=== PATIENT | female | born 1930 | race Caucasian/White ===

== ENCOUNTER 2017-03-02 11:59 | Emergency (ER) | payer OTHER ==
[~2017-03-02] VITALS: Ht 167.6 cm; Wt 54.4 kg
[~2017-03-02 11:59] MED LIST: LISI-711 PO; METO-169 PO; POTA10TA34 PO
[2017-03-02 12:48] LABS: Basophils # (auto) 0 uL; Basophils % (auto) 0.4 % (0.0-2.0); Eosinophils # (auto) 0.1 uL; Hematocrit 37.5 % (36.0-46.0); Hemoglobin 12.6 g/dL (12.2-16.2); Lymphocytes # (auto) 1.3 uL; Lymphocytes % (auto) 15.7 % (10.0-50.0); Mean Corpuscular Hemoglobin 28.4 pg (28.0-32.0); Mean Corpuscular Hgb Conc. 33.6 g/dL (32.0-36.0); Mean Corpuscular Volume 84.5 fL (80.0-100.0); Mean Platelet Volume 8.1 fL (7.4-10.4); Monocytes # (auto) 0.8 uL; Monocytes % (auto) 9.2 % (0.0-12.0); Neutrophils # (auto) 6.3 uL; Neutrophils % (auto) 73.7 % (37.0-80.0); Platelet Count (auto) 228 10^3/uL (140-450); White Blood Cell 8.6 10^3/uL (4.4-10.8)
[2017-03-02 13:15] LABS: Albumin 3.5 g/dL (3.4-5.0); Alkaline Phosphatase 70 U/L (45-117); Anion Gap 9 (5-15); Aspartate Aminotransferase 15 U/L (15-37); BUN/Creatinine Ratio 25.7; Bilirubin, Total 0.8 mg/dL (0.2-1.0); Blood Urea Nitrogen 19 mg/dL (7-18); Calcium 8.9 mg/dL (8.5-10.1); Carbon Dioxide 24 mmol/L (21-32); Chloride 107 mmol/L (98-107); GFR African American 96 mL/min; GFR Non-African American 79 mL/min; Glucose 129 mg/dL (74-106); Potassium 3.6 mmol/L (3.5-5.1); Sodium 140 mmol/L (136-145); Total Protein 7.1 g/dL (6.4-8.2)
[2017-03-02] MEDS ORDERED: SODIUM CHLORIDE 0.9% 1,000 ML IV ONE (14:15)
[2017-03-02 14:35] LABS: INR 1.05 (0.9-1.15); Prothrombin Time 11.5 sec (9.37-12.3)
[2017-03-02 14:41] VITALS: BP 142/80
== END 2017-03-02 15:00 | disposition short-term general hospital (02) ==
LOC: ER 12:03
DX: I61.9 Nontraumatic intracerebral hemorrhage, unspecified (principal); R47.81 Slurred speech; I10 Essential (primary) hypertension; F03.90 Unspecified dementia, unspecified severity, without behavioral disturbance, psychotic disturbance, mood disturbance, and anxiety
CPT/HCPCS: 36415; 51702; 70450; 80053; 82962; 84484; 85025; 85610; 85730; 93005; 96360; 99291

== ENCOUNTER 2017-04-02 19:05 | Inpatient (IN) | payer OTHER ==
[~2017-04-02] VITALS: Ht 167.6 cm; Wt 56.0 kg
[2017-04-02 20:00] VITALS: BP 121/52
[2017-04-02] MEDS ORDERED: MULT1TAB61 PEG (20:20)
[2017-04-02] MEDS ORDERED: FAMO20IN2 IV (20:20)
[2017-04-02] MEDS ORDERED: [UNRECOGNIZED DRUG - CODE] SUBCUT (20:20)
[2017-04-02] MEDS ORDERED: ZIN220C PEG (20:20)
[2017-04-02] MEDS ORDERED: ASPI81CH43 PEG (20:20)
[2017-04-02] MEDS ORDERED: CHOL100079 PEG (20:20)
[2017-04-02] MEDS ORDERED: COLLPOW10 TOP (20:20)
[2017-04-02] MEDS ORDERED: ASCO-22 PEG (20:20)
[2017-04-02] MEDS ORDERED: LEVE100S9 PEG (20:20)
[2017-04-02] MEDS ORDERED: METO-159 PO (20:20)
[2017-04-02] MEDS ORDERED: NITROGLYCERIN 0.4 MG SL TAB SL PRN (21:30)
[2017-04-02] MEDS ORDERED: MORPHINE SULF INJ 2 MG/ML SYRINGE 1ML IV PRN (21:30)
[2017-04-02] MEDS ORDERED: METOPROLOL TARTRATE 50 MG TAB PO ONE (23:45)
[2017-04-03] VITALS (7 sets, daily range): BP systolic 102–146; BP diastolic 47–78
[2017-04-03] MEDS ORDERED: DEXTROSE (50%) 50ML SYRG IV PRN
[2017-04-03 01:16] LABS: Albumin 2.1 g/dL (3.4-5.0); Anion Gap 8 (5-15); Aspartate Aminotransferase 20 U/L (15-37); BUN/Creatinine Ratio 47.6; Blood Urea Nitrogen 20 mg/dL (7-18); Calcium 8.6 mg/dL (8.5-10.1); Carbon Dioxide 27 mmol/L (21-32); Chloride 99 mmol/L (98-107); GFR African American 184 mL/min; GFR Non-African American 152 mL/min; Glucose 115 mg/dL (74-106); Potassium 4.6 mmol/L (3.5-5.1); Sodium 134 mmol/L (136-145)
[2017-04-03 01:22] LABS: Alkaline Phosphatase 119 U/L (45-117); Bilirubin, Total 0.6 mg/dL (0.2-1.0); Total Protein 6.8 g/dL (6.4-8.2)
[2017-04-03 01:23] LABS: Basophils # (auto) 0 uL; Basophils % (auto) 0.2 % (0.0-2.0); CONDITION Y; Eosinophils # (auto) 0.2 uL; Eosinophils % (auto) 1.2 % (0.0-7.0); Hematocrit 32.2 % (36.0-46.0); Hemoglobin 10.8 g/dL (12.2-16.2); Mean Corpuscular Hemoglobin 28.3 pg (28.0-32.0); Mean Corpuscular Hgb Conc. 33.5 g/dL (32.0-36.0); Mean Corpuscular Volume 84.5 fL (80.0-100.0); Mean Platelet Volume 9.1 fL (7.4-10.4); Monocytes # (auto) 1.5 uL; Monocytes % (auto) 11.4 % (0.0-12.0); Neutrophils # (auto) 10.4 uL; Neutrophils % (auto) 79.2 % (37.0-80.0); Platelet Count (auto) 392 10^3/uL (140-450); Red Cell Distribution Width 14.8 % (11.6-16.0); White Blood Cell 13.1 10^3/uL (4.4-10.8)
[2017-04-03 04:00] LABS: Urine Bilirubin Negative (Negative); Urine Blood Negative /uL (Negative); Urine Color Yellow (Yellow); Urine Glucose Normal (Normal); Urine Ketone Negative (Negative); Urine Nitrite Negative (Negative); Urine RBC 1 /hpf (0 - 4); Urine pH 6.5 (5.0-8.0)
[2017-04-03] MEDS: InsuLIN REG 1unit/0.01ml Soln (100units/ml) SC SCH ×4 (06:00→18:00)
[2017-04-03] MEDS: ACCU-CHEK COMFORT CURVE STRIP VI SCH ×4 (06:24→18:00)
[2017-04-03] MEDS ORDERED: Diabetisource AC 1 Liter GT SCH (13:00)
[2017-04-03] MEDS ORDERED: HYDROcodone-ACET 5/325MG TAB PO PRN (13:00)
[2017-04-03] MEDS: METOPROLOL TARTRATE 50 MG TAB PO SCH ×2 (13:11→22:00)
[2017-04-03] MEDS: LISINOPRIL 10 MG TAB PO SCH (13:12)
[2017-04-03] MEDS: LEVETIRACETAM 500 MG TAB PO SCH ×2 (13:13→22:15)
[2017-04-03] MEDS: ASPirin 81 mg TAB PO SCH (13:36)
[2017-04-03] MEDS ORDERED: ACETAMINOPHEN 500 MG TAB PO PRN (14:30)
[2017-04-04] MEDS: ACCU-CHEK COMFORT CURVE STRIP VI SCH ×4 (00:40→18:00)
[2017-04-04 05:00] VITALS: BP 99/53
[2017-04-04] MEDS: InsuLIN REG 1unit/0.01ml Soln (100units/ml) SC SCH ×4 (05:07→18:00)
[2017-04-04 07:14] LABS: Basophils # (auto) 0.1 uL; Basophils % (auto) 0.6 % (0.0-2.0); CONDITION Y; Eosinophils # (auto) 0.2 uL; Eosinophils % (auto) 2.7 % (0.0-7.0); Hematocrit 29.8 % (36.0-46.0); Lymphocytes # (auto) 0.9 uL; Lymphocytes % (auto) 10.3 % (10.0-50.0); Mean Corpuscular Hemoglobin 28.2 pg (28.0-32.0); Mean Corpuscular Hgb Conc. 33.7 g/dL (32.0-36.0); Mean Corpuscular Volume 83.8 fL (80.0-100.0); Mean Platelet Volume 8.7 fL (7.4-10.4); Monocytes # (auto) 1.2 uL; Monocytes % (auto) 13.5 % (0.0-12.0); Neutrophils # (auto) 6.3 uL; Neutrophils % (auto) 72.9 % (37.0-80.0); Platelet Count (auto) 358 10^3/uL (140-450); Red Cell Distribution Width 14.8 % (11.6-16.0); White Blood Cell 8.7 10^3/uL (4.4-10.8)
[2017-04-04 07:30] LABS: BUN/Creatinine Ratio 73.5; Potassium 3.7 mmol/L (3.5-5.1)
[2017-04-04 09:09] VITALS: BP 107/60
[2017-04-04] MEDS: METOPROLOL TARTRATE 50 MG TAB PO SCH ×2 (10:00→22:00)
[2017-04-04] MEDS: LISINOPRIL 10 MG TAB PO SCH (10:00)
[2017-04-04] MEDS ORDERED: ACETAMINOPHEN 650 mg PER 20 mL UD PO PRN (11:45)
[2017-04-04] MEDS: ASPirin 81 mg TAB PO SCH (12:32)
[2017-04-04] MEDS: LEVETIRACETAM 500 MG/5ML ORAL SOLN UD PO SCH ×2 (12:33→23:00)
[2017-04-04 12:40] VITALS: BP 85/38
[2017-04-04] MEDS ORDERED: MORPHINE SULFATE 4 MG/ML SYRG IV PRN (14:17)
[2017-04-04 17:00] VITALS: BP 92/45
[2017-04-04 20:00] VITALS: BP 99/51
[2017-04-04 21:30] VITALS: BP 99/51
[2017-04-05 05:00] VITALS: BP 95/43
[2017-04-05] MEDS: ACCU-CHEK COMFORT CURVE STRIP VI SCH (05:34)
[2017-04-05] MEDS: InsuLIN REG 1unit/0.01ml Soln (100units/ml) SC SCH ×2 (05:35)
[2017-04-05 08:41] VITALS: BP 105/60
[2017-04-05] MEDS: LISINOPRIL 10 MG TAB PO SCH (10:00)
[2017-04-05] MEDS: ASPirin 81 mg TAB PO SCH (10:19)
[2017-04-05] MEDS: LEVETIRACETAM 500 MG/5ML ORAL SOLN UD PO SCH ×2 (10:19→23:11)
[2017-04-05] MEDS: METOPROLOL TARTRATE 50 MG TAB PO SCH ×2 (10:19→23:12)
[2017-04-05] MEDS ORDERED: TROLAMINE SALICYLATE 10% TOP CREAM TOP PRN (11:15)
[2017-04-05 12:19] VITALS: BP 84/53
[2017-04-05 16:35] VITALS: BP 85/48
[2017-04-05 20:36] VITALS: BP 106/53
[2017-04-05] MEDS: ASCORBIC ACID 500 MG TAB PO SCH (23:11)
[2017-04-06 05:41] VITALS: BP 128/73
[2017-04-06 07:29] VITALS: BP 120/61
[2017-04-06 08:00] VITALS: BP 120/61
[2017-04-06] MEDS: PRO-STAT 64 30ML PO SCH ×2 (08:00→18:22)
[2017-04-06] MEDS: ASPirin 81 mg TAB PO SCH (11:34)
[2017-04-06] MEDS: METOPROLOL TARTRATE 50 MG TAB PO SCH ×2 (11:34→22:14)
[2017-04-06] MEDS: LEVETIRACETAM 500 MG/5ML ORAL SOLN UD PO SCH ×2 (11:34→22:13)
[2017-04-06] MEDS: ASCORBIC ACID 500 MG TAB PO SCH ×2 (11:35→22:14)
[2017-04-06] MEDS: MULTIPLE VITAMINS W/ MINERALS TAB PO SCH (11:35)
[2017-04-06 12:24] VITALS: BP 105/55
[2017-04-06 16:36] VITALS: BP 122/64
[2017-04-06] MEDS: Diabetisource AC 1 Liter GT SCH (17:00)
[2017-04-07 05:00] VITALS: BP 114/69
[2017-04-07 08:00] VITALS: BP 112/73
[2017-04-07] MEDS: METOPROLOL TARTRATE 50 MG TAB PO SCH ×2 (10:00→22:45)
[2017-04-07 10:13] VITALS: BP 112/73
[2017-04-07] MEDS: ASCORBIC ACID 500 MG TAB PO SCH ×2 (12:17→22:45)
[2017-04-07] MEDS: MULTIPLE VITAMINS W/ MINERALS TAB PO SCH (12:18)
[2017-04-07] MEDS: LEVETIRACETAM 500 MG/5ML ORAL SOLN UD PO SCH ×2 (12:18→22:44)
[2017-04-07] MEDS: ASPirin 81 mg TAB PO SCH (12:18)
[2017-04-07] MEDS: PRO-STAT 64 30ML PO SCH ×2 (12:18→18:00)
[2017-04-07 15:17] VITALS: BP 126/64
[2017-04-07 17:08] VITALS: BP 113/73
[2017-04-07 22:00] VITALS: BP 116/51
[2017-04-08 05:00] VITALS: BP 94/57
[2017-04-08 08:00] VITALS: BP 101/64
[2017-04-08] MEDS: PRO-STAT 64 30ML PO SCH ×2 (08:00→18:00)
[2017-04-08] MEDS: METOPROLOL TARTRATE 50 MG TAB PO SCH ×2 (08:04→22:00)
[2017-04-08] MEDS: ACETAMINOPHEN 650 mg PER 20 mL UD GT PRN (08:39)
[2017-04-08 09:16] VITALS: BP 101/64
[2017-04-08] MEDS: ASPirin 81 mg TAB PO SCH (12:05)
[2017-04-08] MEDS: FREE WATER GT SCH ×3 (12:06→23:53)
[2017-04-08] MEDS: ASCORBIC ACID 500 MG TAB PO SCH ×2 (12:06→22:20)
[2017-04-08] MEDS: LEVETIRACETAM 500 MG/5ML ORAL SOLN UD PO SCH ×2 (12:06→22:19)
[2017-04-08] MEDS: MULTIPLE VITAMINS W/ MINERALS TAB PO SCH (12:06)
[2017-04-08 14:00] VITALS: BP 113/56
[2017-04-08] MEDS: Diabetisource AC 1 Liter GT SCH (15:25)
[2017-04-08 16:00] VITALS: BP 105/61
[2017-04-08 22:00] VITALS: BP_SYST 101; BP_SYST 112; BP_DIAS 57; BP_DIAS 77
[2017-04-09] MEDS: FREE WATER GT SCH ×3 (05:59→18:12)
[2017-04-09 06:00] VITALS: BP 100/59
[2017-04-09 08:00] VITALS: BP 105/55
[2017-04-09] MEDS: PRO-STAT 64 30ML PO SCH ×2 (10:38→18:12)
[2017-04-09] MEDS: LEVETIRACETAM 500 MG/5ML ORAL SOLN UD PO SCH ×2 (10:39→23:06)
[2017-04-09] MEDS: METOPROLOL TARTRATE 50 MG TAB PO SCH ×2 (10:39→23:07)
[2017-04-09] MEDS: ASPirin 81 mg TAB PO SCH (10:40)
[2017-04-09] MEDS: ASCORBIC ACID 500 MG TAB PO SCH ×2 (10:40→23:07)
[2017-04-09] MEDS: MULTIPLE VITAMINS W/ MINERALS TAB PO SCH (10:40)
[2017-04-09 13:00] VITALS: BP 109/51
[2017-04-09 17:30] VITALS: BP 102/48
[2017-04-09 22:00] VITALS: BP 103/61
[2017-04-09] MEDS: ATORVASTATIN 20 MG TAB PEG SCH (23:05)
[2017-04-10 06:00] VITALS: BP 111/60
[2017-04-10] MEDS: FREE WATER GT SCH ×5 (06:00→23:47)
[2017-04-10 09:00] VITALS: BP 104/65
[2017-04-10] MEDS: PRO-STAT 64 30ML PO SCH ×2 (11:45→18:00)
[2017-04-10] MEDS: ASPirin 81 mg TAB PO SCH (11:46)
[2017-04-10] MEDS: LEVETIRACETAM 500 MG/5ML ORAL SOLN UD PO SCH ×2 (11:47→23:10)
[2017-04-10] MEDS: METOPROLOL TARTRATE 50 MG TAB PO SCH ×2 (11:50→21:58)
[2017-04-10] MEDS: MULTIPLE VITAMINS W/ MINERALS TAB PO SCH (11:50)
[2017-04-10] MEDS: ASCORBIC ACID 500 MG TAB PO SCH ×2 (11:51→21:58)
[2017-04-10 13:00] VITALS: BP 105/63
[2017-04-10] MEDS ORDERED: HYDROcodone-ACET 5/325MG TAB PO PRN (15:15)
[2017-04-10] MEDS ORDERED: ARTIFICIAL TEARS 15ml EACHEYE PRN (15:15)
[2017-04-10 17:00] VITALS: BP 96/52
[2017-04-10 20:00] VITALS: BP 112/61
[2017-04-10] MEDS: ATORVASTATIN 20 MG TAB PEG SCH (21:57)
[2017-04-10 22:00] VITALS: BP 112/61
[2017-04-11 05:00] VITALS: BP 96/50
[2017-04-11] MEDS: FREE WATER GT SCH ×3 (06:12→18:00)
[2017-04-11 09:00] VITALS: BP 99/50
[2017-04-11] MEDS: LEVETIRACETAM 500 MG/5ML ORAL SOLN UD PO SCH ×2 (09:38→22:17)
[2017-04-11] MEDS: ASPirin 81 mg TAB PO SCH (09:39)
[2017-04-11] MEDS: METOPROLOL TARTRATE 50 MG TAB PO SCH ×2 (09:39→22:18)
[2017-04-11] MEDS: PRO-STAT 64 30ML PO SCH ×2 (09:40→18:00)
[2017-04-11] MEDS: ASCORBIC ACID 500 MG TAB PO SCH ×2 (09:40→22:17)
[2017-04-11] MEDS: MULTIPLE VITAMINS W/ MINERALS TAB PO SCH (09:40)
[2017-04-11 13:00] VITALS: BP 92/55
[2017-04-11 16:42] VITALS: BP 88/35
[2017-04-11 20:00] VITALS: BP 106/53
[2017-04-11 22:00] VITALS: BP 106/53
[2017-04-11] MEDS: ATORVASTATIN 20 MG TAB PEG SCH (22:17)
[2017-04-12] MEDS: FREE WATER GT SCH ×4 (01:17→18:19)
[2017-04-12 05:00] VITALS: BP 118/65
[2017-04-12] MEDS: PRO-STAT 64 30ML PO SCH ×3 (08:00→18:19)
[2017-04-12 09:00] VITALS: BP 129/78
[2017-04-12] MEDS: METOPROLOL TARTRATE 50 MG TAB PO SCH ×2 (14:32→21:50)
[2017-04-12] MEDS: ASPirin 81 mg TAB PO SCH (14:32)
[2017-04-12] MEDS: LEVETIRACETAM 500 MG/5ML ORAL SOLN UD PO SCH ×2 (14:32→21:51)
[2017-04-12] MEDS: ASCORBIC ACID 500 MG TAB PO SCH ×2 (14:33→21:36)
[2017-04-12] MEDS: MULTIPLE VITAMINS W/ MINERALS TAB PO SCH (14:33)
[2017-04-12 15:05] VITALS: BP 122/76
[2017-04-12 17:20] VITALS: BP 120/68
[2017-04-12] MEDS: ATORVASTATIN 20 MG TAB PEG SCH (21:36)
[2017-04-12 22:00] VITALS: BP 105/59
[2017-04-13] MEDS: FREE WATER GT SCH ×4 (00:34→18:00)
[2017-04-13 05:00] VITALS: BP 104/53
[2017-04-13] MEDS: PRO-STAT 64 30ML PO SCH ×2 (08:00→18:00)
[2017-04-13 09:05] VITALS: BP 101/63
[2017-04-13] MEDS: METOPROLOL TARTRATE 50 MG TAB PO SCH ×2 (10:00→21:41)
[2017-04-13] MEDS: ASPirin 81 mg TAB PO SCH (10:00)
[2017-04-13] MEDS: MULTIPLE VITAMINS W/ MINERALS TAB PO SCH (10:30)
[2017-04-13] MEDS: ASCORBIC ACID 500 MG TAB PO SCH ×2 (10:30→21:41)
[2017-04-13] MEDS: LEVETIRACETAM 500 MG/5ML ORAL SOLN UD PO SCH ×2 (10:31→21:40)
[2017-04-13 16:53] VITALS: BP 102/56
[2017-04-13] MEDS: ATORVASTATIN 20 MG TAB PEG SCH (21:40)
[2017-04-13 21:43] VITALS: BP 133/92
[2017-04-14] MEDS: FREE WATER GT SCH ×5 (00:04→23:43)
[2017-04-14 04:41] VITALS: BP 102/42
[2017-04-14] MEDS: PRO-STAT 64 30ML PO SCH ×2 (08:00→17:51)
[2017-04-14 09:00] VITALS: BP 94/45
[2017-04-14] MEDS: METOPROLOL TARTRATE 50 MG TAB PO SCH ×2 (10:00→22:00)
[2017-04-14] MEDS: ASPirin 81 mg TAB PO SCH (10:48)
[2017-04-14] MEDS: ASCORBIC ACID 500 MG TAB PO SCH ×2 (10:49→23:00)
[2017-04-14] MEDS: MULTIPLE VITAMINS W/ MINERALS TAB PO SCH (10:49)
[2017-04-14] MEDS: LEVETIRACETAM 500 MG/5ML ORAL SOLN UD PO SCH ×2 (10:51→23:00)
[2017-04-14 13:00] VITALS: BP_SYST 104; BP_SYST 105; BP_DIAS 47; BP_DIAS 62
[2017-04-14 17:00] VITALS: BP 104/47
[2017-04-14 20:00] VITALS: BP 113/52
[2017-04-14 22:07] VITALS: BP 113/52
[2017-04-14] MEDS: ATORVASTATIN 20 MG TAB PEG SCH (23:00)
[2017-04-15] VITALS (7 sets, daily range): BP systolic 83–132; BP diastolic 42–81
[2017-04-15] MEDS: FREE WATER GT SCH ×4 (05:45→23:56)
[2017-04-15 06:20] LABS: Basophils # (auto) 0 uL; Basophils % (auto) 0.1 % (0.0-2.0); CONDITION Y; Eosinophils # (auto) 0.1 uL; Eosinophils % (auto) 0.5 % (0.0-7.0); Hematocrit 28.9 % (36.0-46.0); Hemoglobin 9.5 g/dL (12.2-16.2); Lymphocytes # (auto) 1.3 uL; Lymphocytes % (auto) 8.8 % (10.0-50.0); Mean Corpuscular Hgb Conc. 32.8 g/dL (32.0-36.0); Mean Corpuscular Volume 85.2 fL (80.0-100.0); Mean Platelet Volume 8.7 fL (7.4-10.4); Monocytes # (auto) 1.2 uL; Monocytes % (auto) 8.3 % (0.0-12.0); Neutrophils # (auto) 11.8 uL; Neutrophils % (auto) 82.3 % (37.0-80.0); Platelet Count (auto) 309 10^3/uL (140-450); Red Cell Distribution Width 15.6 % (11.6-16.0); White Blood Cell 14.3 10^3/uL (4.4-10.8)
[2017-04-15 06:35] LABS: INR 1.14 (0.9-1.15)
[2017-04-15 06:36] LABS: Prothrombin Time 12.4 sec (9.37-12.3)
[2017-04-15 07:07] LABS: Calcium 8.7 mg/dL (8.5-10.1); Magnesium 2.3 mg/dL (1.6-2.6); Potassium 3.8 mmol/L (3.5-5.1)
[2017-04-15] MEDS: PRO-STAT 64 30ML PO SCH ×2 (08:00→18:13)
[2017-04-15] MEDS: METOPROLOL TARTRATE 50 MG TAB PO SCH ×2 (10:00→22:00)
[2017-04-15] MEDS: MULTIPLE VITAMINS W/ MINERALS TAB PO SCH (10:00)
[2017-04-15] MEDS ORDERED: ACETAMINOPHEN 650 mg PER 20 mL UD ONE (10:54)
[2017-04-15] MEDS ORDERED: VANCOMYCIN PER PHARMACY 0 MG IV SCH (11:15)
[2017-04-15] MEDS: ASPirin 81 mg TAB PO SCH (11:23)
[2017-04-15] MEDS: LEVETIRACETAM 500 MG/5ML ORAL SOLN UD PO SCH ×2 (11:23→22:37)
[2017-04-15] MEDS: ASCORBIC ACID 500 MG TAB PO SCH ×2 (11:24→22:37)
[2017-04-15] MEDS: ACETAMINOPHEN 650 mg PER 20 mL UD GT PRN (11:25)
[2017-04-15] MEDS ORDERED: SODIUM CHLORIDE 0.9% 500 ML IV ONE (12:45)
[2017-04-15] MEDS: SODIUM CHLORIDE 0.9% 1,000 ML IV SCH (12:45)
[2017-04-15] MEDS ORDERED: VANCOMYCIN 1GM/250ML D5W 250 ML IV ONE (14:00)
[2017-04-15] MEDS: ATORVASTATIN 20 MG TAB PEG SCH (22:37)
[2017-04-16] MEDS: SODIUM CHLORIDE 0.9% 1,000 ML IV SCH (03:54)
[2017-04-16 05:00] VITALS: BP 127/67
[2017-04-16] MEDS: FREE WATER GT SCH ×3 (05:34→18:00)
[2017-04-16 06:33] LABS: Basophils # (auto) 0 uL; Basophils % (auto) 0.1 % (0.0-2.0); CONDITION Y; Calcium 8.5 mg/dL (8.5-10.1); Eosinophils # (auto) 0.2 uL; Eosinophils % (auto) 1.4 % (0.0-7.0); Hematocrit 28.4 % (36.0-46.0); Hemoglobin 9.4 g/dL (12.2-16.2); Lymphocytes # (auto) 1.1 uL; Mean Corpuscular Hemoglobin 28.4 pg (28.0-32.0); Mean Corpuscular Hgb Conc. 33.2 g/dL (32.0-36.0); Mean Corpuscular Volume 85.4 fL (80.0-100.0); Mean Platelet Volume 9.3 fL (7.4-10.4); Monocytes # (auto) 0.9 uL; Monocytes % (auto) 6.6 % (0.0-12.0); Neutrophils # (auto) 11.3 uL; Neutrophils % (auto) 83.9 % (37.0-80.0); Platelet Count (auto) 306 10^3/uL (140-450); Potassium 4.1 mmol/L (3.5-5.1); Red Cell Distribution Width 14.9 % (11.6-16.0); White Blood Cell 13.5 10^3/uL (4.4-10.8)
[2017-04-16 06:36] LABS: Magnesium 2.2 mg/dL (1.6-2.6)
[2017-04-16 06:38] LABS: Bilirubin, Total 0.4 mg/dL (0.2-1.0); Total Protein 6.5 g/dL (6.4-8.2)
[2017-04-16 06:39] LABS: INR 1.12 (0.9-1.15); Prothrombin Time 12.2 sec (9.37-12.3)
[2017-04-16] MEDS: PRO-STAT 64 30ML PO SCH ×2 (08:00→18:00)
[2017-04-16 09:29] VITALS: BP 144/74
[2017-04-16] MEDS: METOPROLOL TARTRATE 50 MG TAB PO SCH ×2 (09:47→22:51)
[2017-04-16] MEDS: ASPirin 81 mg TAB PO SCH (09:47)
[2017-04-16] MEDS: MULTIPLE VITAMINS W/ MINERALS TAB PO SCH (09:47)
[2017-04-16] MEDS: ASCORBIC ACID 500 MG TAB PO SCH ×2 (09:48→22:52)
[2017-04-16] MEDS: LEVETIRACETAM 500 MG/5ML ORAL SOLN UD PO SCH ×2 (10:29→22:50)
[2017-04-16] MEDS: VANCOMYCIN 1GM/250ML D5W 250 ML IV SCH (11:00)
[2017-04-16 11:39] VITALS: BP 91/33
[2017-04-16 17:12] VITALS: BP 138/78
[2017-04-16 20:00] VITALS: BP 138/78
[2017-04-16 22:00] VITALS: BP 128/65
[2017-04-16] MEDS: ATORVASTATIN 20 MG TAB PO SCH (22:50)
[2017-04-17] MEDS: FREE WATER GT SCH ×4 (01:31→18:00)
[2017-04-17 05:00] VITALS: BP 108/61
[2017-04-17 06:25] LABS: Basophils # (auto) 0.1 uL; Basophils % (auto) 0.5 % (0.0-2.0); CONDITION Y; Eosinophils # (auto) 0.2 uL; Eosinophils % (auto) 2.1 % (0.0-7.0); Hematocrit 25.7 % (36.0-46.0); Hemoglobin 8.6 g/dL (12.2-16.2); Lymphocytes # (auto) 1.1 uL; Lymphocytes % (auto) 9.3 % (10.0-50.0); Mean Corpuscular Hemoglobin 28.3 pg (28.0-32.0); Mean Corpuscular Hgb Conc. 33.6 g/dL (32.0-36.0); Mean Corpuscular Volume 84.2 fL (80.0-100.0); Monocytes # (auto) 0.8 uL; Monocytes % (auto) 7.4 % (0.0-12.0); Neutrophils # (auto) 9.2 uL; Neutrophils % (auto) 80.7 % (37.0-80.0); Platelet Count (auto) 296 10^3/uL (140-450); Red Cell Distribution Width 15.2 % (11.6-16.0); White Blood Cell 11.4 10^3/uL (4.4-10.8)
[2017-04-17 09:00] VITALS: BP 90/48
[2017-04-17] MEDS: METOPROLOL TARTRATE 50 MG TAB PO SCH ×2 (10:00→23:05)
[2017-04-17] MEDS ORDERED: ACETAMINOPHEN 650 mg PER 20 mL UD GT PRN (11:00)
[2017-04-17] MEDS: PRO-STAT 64 30ML PO SCH ×2 (11:16→18:00)
[2017-04-17] MEDS: ASPirin 81 mg TAB PO SCH (11:17)
[2017-04-17] MEDS: MULTIPLE VITAMINS W/ MINERALS TAB PO SCH (11:18)
[2017-04-17] MEDS: VANCOMYCIN 1GM/250ML D5W 250 ML IV SCH (11:19)
[2017-04-17] MEDS: ASCORBIC ACID 500 MG TAB PO SCH ×2 (11:19→23:04)
[2017-04-17 13:00] VITALS: BP 103/54
[2017-04-17 17:00] VITALS: BP 100/48
[2017-04-17 20:00] VITALS: BP 89/48
[2017-04-17 22:00] VITALS: BP 131/68
[2017-04-17] MEDS: ATORVASTATIN 20 MG TAB PO SCH (23:04)
[2017-04-17] MEDS: LEVETIRACETAM 500 MG/5ML ORAL SOLN UD PO SCH (23:04)
[2017-04-18] MEDS: FREE WATER GT SCH ×4 (03:24→18:50)
[2017-04-18 05:00] VITALS: BP 116/65
[2017-04-18 07:27] LABS: Basophils # (auto) 0 uL; Basophils % (auto) 0.2 % (0.0-2.0); CONDITION Y; Eosinophils # (auto) 0.1 uL; Eosinophils % (auto) 1.3 % (0.0-7.0); Hemoglobin 8.5 g/dL (12.2-16.2); Lymphocytes % (auto) 9.7 % (10.0-50.0); Mean Corpuscular Hemoglobin 27.9 pg (28.0-32.0); Mean Corpuscular Hgb Conc. 32.8 g/dL (32.0-36.0); Mean Corpuscular Volume 84.9 fL (80.0-100.0); Mean Platelet Volume 9.1 fL (7.4-10.4); Monocytes % (auto) 9.8 % (0.0-12.0); Neutrophils # (auto) 8.1 uL; Platelet Count (auto) 296 10^3/uL (140-450); Red Cell Distribution Width 15.2 % (11.6-16.0); White Blood Cell 10.2 10^3/uL (4.4-10.8)
[2017-04-18] MEDS: PRO-STAT 64 30ML PO SCH ×2 (08:00→18:50)
[2017-04-18] MEDS ORDERED: ceFAZolin 1GM/50ML D5W 50 ML IV ONE (09:34)
[2017-04-18] MEDS: ASPirin 81 mg TAB PO SCH (10:00)
[2017-04-18] MEDS: LEVETIRACETAM 500 MG/5ML ORAL SOLN UD PO SCH ×2 (10:00→22:14)
[2017-04-18] MEDS: METOPROLOL TARTRATE 50 MG TAB PO SCH ×2 (10:00→22:14)
[2017-04-18] MEDS: MULTIPLE VITAMINS W/ MINERALS TAB PO SCH (10:00)
[2017-04-18] MEDS: ASCORBIC ACID 500 MG TAB PO SCH ×2 (10:00→22:15)
[2017-04-18] MEDS ORDERED: fentaNYL CITRATE 100 MCG/2 ML VL ONE (10:02)
[2017-04-18] MEDS ORDERED: PROPOFOL 10 MG/ML 20 ML IV ONE (10:03)
[2017-04-18] MEDS ORDERED: fentaNYL CITRATE 100 MCG/2 ML VL IV ONE (11:00)
[2017-04-18] MEDS ORDERED: ONDANSETRON HCL 4 MG/2 ML VIAL IV ONE (11:00)
[2017-04-18] MEDS ORDERED: ePHEDrine SULFATE 50 MG/ML AMP IV PRN (11:00)
[2017-04-18] MEDS ORDERED: hydrALAZINE HCL 20 MG/ML VL IV PRN (11:00)
[2017-04-18 13:00] VITALS: BP 116/67
[2017-04-18] MEDS: VANCOMYCIN 750 MG in D5W 5% 250 ML IV SCH (16:00)
[2017-04-18] MEDS ORDERED: cefTRIAXone 1GM/50ML D5W 50 ML IV ONE (16:45)
[2017-04-18 17:00] VITALS: BP 147/64
[2017-04-18 22:00] VITALS: BP_SYST 136; BP_SYST 150; BP_DIAS 54; BP_DIAS 64
[2017-04-18] MEDS: ATORVASTATIN 20 MG TAB PO SCH (22:14)
[2017-04-19] MEDS: FREE WATER GT SCH ×4 (00:16→18:25)
[2017-04-19] MEDS: VANCOMYCIN 750 MG in D5W 5% 250 ML IV SCH ×2 (03:36→15:45)
[2017-04-19 05:00] VITALS: BP 127/78
[2017-04-19 08:37] VITALS: BP 131/69
[2017-04-19] MEDS ORDERED: cefTRIAXone 1GM/50ML D5W 50 ML IV SCH (09:00)
[2017-04-19] MEDS ORDERED: TROLAMINE SALICYLATE 10% TOP CREAM TOP PRN (10:00)
[2017-04-19] MEDS: ASCORBIC ACID 500 MG TAB PO SCH ×2 (10:31→22:46)
[2017-04-19] MEDS: ASPirin 81 mg TAB PO SCH (10:31)
[2017-04-19] MEDS: LEVETIRACETAM 500 MG/5ML ORAL SOLN UD PO SCH ×2 (10:31→22:46)
[2017-04-19] MEDS: MULTIPLE VITAMINS W/ MINERALS TAB PO SCH (10:32)
[2017-04-19] MEDS: METOPROLOL TARTRATE 50 MG TAB PO SCH ×2 (10:33→22:47)
[2017-04-19 13:00] VITALS: BP 114/58
[2017-04-19 16:40] VITALS: BP 119/71
[2017-04-19] MEDS ORDERED: LEVOFLOXACIN 500MG 100 ML IV ONE (17:15)
[2017-04-19] MEDS: PRO-STAT 64 30ML PO SCH (18:25)
[2017-04-19 20:00] VITALS: BP 105/69
[2017-04-19 22:00] VITALS: BP 108/69
[2017-04-19] MEDS: ATORVASTATIN 20 MG TAB PO SCH (22:46)
[2017-04-20] MEDS: FREE WATER GT SCH ×4 (00:11→17:50)
[2017-04-20 03:05] LABS: Basophils # (auto) 0 uL; Basophils % (auto) 0.2 % (0.0-2.0); CONDITION Y; Eosinophils # (auto) 0.2 uL; Eosinophils % (auto) 2.1 % (0.0-7.0); Hemoglobin 9.1 g/dL (12.2-16.2); Lymphocytes # (auto) 1.1 uL; Lymphocytes % (auto) 11.3 % (10.0-50.0); Mean Corpuscular Hemoglobin 28.4 pg (28.0-32.0); Mean Corpuscular Hgb Conc. 33.6 g/dL (32.0-36.0); Mean Corpuscular Volume 84.5 fL (80.0-100.0); Mean Platelet Volume 8.5 fL (7.4-10.4); Monocytes # (auto) 0.9 uL; Monocytes % (auto) 9.9 % (0.0-12.0); Neutrophils # (auto) 7.3 uL; Neutrophils % (auto) 76.5 % (37.0-80.0); Platelet Count (auto) 360 10^3/uL (140-450); Red Cell Distribution Width 15.3 % (11.6-16.0); White Blood Cell 9.6 10^3/uL (4.4-10.8)
[2017-04-20] MEDS: VANCOMYCIN 750 MG in D5W 5% 250 ML IV SCH ×2 (04:12→16:52)
[2017-04-20 05:00] VITALS: BP 133/80
[2017-04-20 08:53] VITALS: BP 137/80
[2017-04-20] MEDS: PRO-STAT 64 30ML PO SCH ×2 (09:20→17:50)
[2017-04-20] MEDS: LEVETIRACETAM 500 MG/5ML ORAL SOLN UD PO SCH ×2 (10:29→22:45)
[2017-04-20] MEDS: LEVOFLOXACIN 500MG 100 ML IV SCH (10:29)
[2017-04-20] MEDS: ASPirin 81 mg TAB PO SCH (10:29)
[2017-04-20] MEDS: METOPROLOL TARTRATE 50 MG TAB PO SCH ×2 (10:30→22:46)
[2017-04-20] MEDS: ASCORBIC ACID 500 MG TAB PO SCH ×2 (10:30→22:45)
[2017-04-20] MEDS: MULTIPLE VITAMINS W/ MINERALS TAB PO SCH (10:30)
[2017-04-20 12:44] VITALS: BP 108/68
[2017-04-20 16:33] VITALS: BP 123/79
[2017-04-20 20:00] VITALS: BP 139/74
[2017-04-20 21:30] VITALS: BP 139/74
[2017-04-20] MEDS: ATORVASTATIN 20 MG TAB PO SCH (22:45)
[2017-04-21] MEDS: FREE WATER GT SCH ×5 (00:27→23:44)
[2017-04-21] MEDS: VANCOMYCIN 750 MG in D5W 5% 250 ML IV SCH ×2 (04:19→16:22)
[2017-04-21 05:00] VITALS: BP 139/86
[2017-04-21 09:00] VITALS: BP 143/86
[2017-04-21] MEDS: PRO-STAT 64 30ML PO SCH ×2 (10:35→18:11)
[2017-04-21] MEDS: LEVOFLOXACIN 500MG 100 ML IV SCH (10:37)
[2017-04-21] MEDS: ASPirin 81 mg TAB PO SCH (10:38)
[2017-04-21] MEDS: LEVETIRACETAM 500 MG/5ML ORAL SOLN UD PO SCH ×2 (10:40→22:33)
[2017-04-21] MEDS: MULTIPLE VITAMINS W/ MINERALS TAB PO SCH (10:40)
[2017-04-21] MEDS: METOPROLOL TARTRATE 50 MG TAB PO SCH ×2 (10:43→22:34)
[2017-04-21] MEDS: ASCORBIC ACID 500 MG TAB PO SCH ×2 (10:43→22:33)
[2017-04-21 13:00] VITALS: BP 126/78
[2017-04-21 17:00] VITALS: BP 131/74
[2017-04-21] MEDS: ATORVASTATIN 20 MG TAB PO SCH (22:33)
[2017-04-21 22:38] VITALS: BP 144/78
[2017-04-22] MEDS: VANCOMYCIN 750 MG in D5W 5% 250 ML IV SCH ×2 (04:10→15:19)
[2017-04-22] MEDS: FREE WATER GT SCH ×4 (05:19→23:46)
[2017-04-22 05:32] VITALS: BP 133/89
[2017-04-22 06:13] LABS: Calcium 8.6 mg/dL (8.5-10.1); Potassium 3.1 mmol/L (3.5-5.1)
[2017-04-22 08:00] VITALS: BP 129/83
[2017-04-22 09:00] VITALS: BP 113/71
[2017-04-22] MEDS: PRO-STAT 64 30ML PO SCH ×2 (10:08→18:47)
[2017-04-22] MEDS: LEVOFLOXACIN 500MG 100 ML IV SCH (10:09)
[2017-04-22] MEDS: METOPROLOL TARTRATE 50 MG TAB PO SCH ×2 (10:09→22:27)
[2017-04-22] MEDS: ASPirin 81 mg TAB PO SCH (10:09)
[2017-04-22] MEDS: MULTIPLE VITAMINS W/ MINERALS TAB PO SCH (10:09)
[2017-04-22] MEDS: ASCORBIC ACID 500 MG TAB PO SCH ×2 (10:09→22:00)
[2017-04-22] MEDS: LEVETIRACETAM 500 MG/5ML ORAL SOLN UD PO SCH ×2 (10:09→22:26)
[2017-04-22 13:00] VITALS: BP 134/79
[2017-04-22] MEDS ORDERED: POTASSIUM CHL 20 Meq TABLET PO ONE (14:00)
[2017-04-22 17:00] VITALS: BP 132/81
[2017-04-22 21:47] VITALS: BP 129/81
[2017-04-22] MEDS: ATORVASTATIN 20 MG TAB PO SCH (22:26)
[2017-04-23] MEDS: VANCOMYCIN 750 MG in D5W 5% 250 ML IV SCH (04:04)
[2017-04-23 05:06] VITALS: BP 140/88
[2017-04-23] MEDS: FREE WATER GT SCH (05:26)
[2017-04-23 09:00] VITALS: BP 137/83
[2017-04-23] MEDS: MULTIPLE VITAMINS W/ MINERALS TAB PO SCH (11:31)
[2017-04-23] MEDS: ASPirin 81 mg TAB PO SCH (11:31)
[2017-04-23] MEDS: ASCORBIC ACID 500 MG TAB PO SCH ×2 (11:31→22:42)
[2017-04-23] MEDS: LEVOFLOXACIN 500 MG TAB PO SCH (11:31)
[2017-04-23] MEDS: METOPROLOL TARTRATE 50 MG TAB PO SCH ×2 (11:33→22:42)
[2017-04-23] MEDS: PRO-STAT 64 30ML PO SCH ×2 (11:33→18:00)
[2017-04-23] MEDS: LEVETIRACETAM 500 MG/5ML ORAL SOLN UD PO SCH ×2 (11:46→22:41)
[2017-04-23] MEDS: BOOST PLUS 8 ounce PO SCH ×2 (12:09→18:00)
[2017-04-23 13:00] VITALS: BP 120/73
[2017-04-23] MEDS: HYDROcodone-ACET 5/325MG TAB PO PRN (15:43)
[2017-04-23 17:00] VITALS: BP 111/60
[2017-04-23 22:00] VITALS: BP 127/73
[2017-04-23] MEDS: ATORVASTATIN 20 MG TAB PO SCH (22:41)
[2017-04-24] MEDS: HYDROcodone-ACET 5/325MG TAB PO PRN (00:34)
[2017-04-24 05:00] VITALS: BP 115/58
[2017-04-24] MEDS: PRO-STAT 64 30ML PO SCH ×2 (08:00→18:00)
[2017-04-24] MEDS: BOOST PLUS 8 ounce PO SCH ×3 (08:00→18:00)
[2017-04-24 09:05] VITALS: BP 133/71
[2017-04-24] MEDS: MULTIPLE VITAMINS W/ MINERALS TAB PO SCH (09:10)
[2017-04-24] MEDS: LEVOFLOXACIN 500 MG TAB PO SCH (09:10)
[2017-04-24] MEDS: ASPirin 81 mg TAB PO SCH (09:10)
[2017-04-24] MEDS: ASCORBIC ACID 500 MG TAB PO SCH ×2 (09:10→22:24)
[2017-04-24] MEDS: METOPROLOL TARTRATE 50 MG TAB PO SCH ×2 (09:11→22:25)
[2017-04-24] MEDS: LEVETIRACETAM 500 MG/5ML ORAL SOLN UD PO SCH ×2 (09:11→22:24)
[2017-04-24] MEDS ORDERED: ARTIFICIAL TEARS 15ml EACHEYE PRN (11:15)
[2017-04-24 13:00] VITALS: BP 127/75
[2017-04-24 16:31] VITALS: BP 111/66
[2017-04-24 20:20] VITALS: BP 134/70
[2017-04-24 22:00] VITALS: BP 134/70
[2017-04-24] MEDS: ATORVASTATIN 20 MG TAB PO SCH (22:25)
[2017-04-25 05:00] VITALS: BP 137/70
[2017-04-25] MEDS: PRO-STAT 64 30ML PO SCH (08:00)
[2017-04-25] MEDS: BOOST PLUS 8 ounce PO SCH ×2 (08:00→12:00)
[2017-04-25] MEDS: ASPirin 81 mg TAB PO SCH (08:53)
[2017-04-25] MEDS: ASCORBIC ACID 500 MG TAB PO SCH (08:53)
[2017-04-25] MEDS: LEVOFLOXACIN 500 MG TAB PO SCH (08:53)
[2017-04-25] MEDS: MULTIPLE VITAMINS W/ MINERALS TAB PO SCH (08:53)
[2017-04-25] MEDS: METOPROLOL TARTRATE 50 MG TAB PO SCH (08:54)
[2017-04-25] MEDS: LEVETIRACETAM 500 MG/5ML ORAL SOLN UD PO SCH (08:55)
[2017-04-25 08:56] VITALS: BP 150/83
[2017-04-25 13:44] VITALS: BP 146/80
== END 2017-04-25 17:50 | disposition hospice, inpatient (51) | DRG 853 ==
LOC: TELE 19:05 → TELE-EAST 19:14 → EAST 04-08 11:48
PROVIDERS: ADMIT Family Medicine; ATTEND Internal Medicine
PROC: 0JB70ZZ Excision of Back Subcutaneous Tissue and Fascia, Open Approach (ICD-10-PCS; principal; 2017-04-18 09:59)
DX: A41.9 Sepsis, unspecified organism (principal); G82.50 Quadriplegia, unspecified; E43 Unspecified severe protein-calorie malnutrition; L89.154 Pressure ulcer of sacral region, stage 4; I63.9 Cerebral infarction, unspecified; Z68.1 Body mass index [BMI] 19.9 or less, adult; R47.01 Aphasia; E44.0 Moderate protein-calorie malnutrition; F03.90 Unspecified dementia, unspecified severity, without behavioral disturbance, psychotic disturbance, mood disturbance, and anxiety; I48.91 Unspecified atrial fibrillation; Z86.73 Personal history of transient ischemic attack (TIA), and cerebral infarction without residual deficits; Z93.1 Gastrostomy status; I10 Essential (primary) hypertension; R13.10 Dysphagia, unspecified; Z51.5 Encounter for palliative care; Z87.01 Personal history of pneumonia (recurrent); R56.9 Unspecified convulsions
CPT/HCPCS: 36415; 70450; 71010; 80048; 80053; 80202; 81001; 82962; 83036; 83735; 84132; 84484; 85025; 85610; 87040; 87077; 87081; 87186; 87205; 88304; 88312; 92610; 93005; 97110; 97116; 97163; 97530; J0690; J0696; J1956; J2704; J7060